=== PATIENT | male | born 1980 | race Caucasian/White ===

== ENCOUNTER 2017-10-01 09:02 | Emergency (ER) | payer BC ==
[2017-10-01 09:15] VITALS: BP 140/85
--- NOTE | 2017-10-01 10:16 | UC ---
Skin Complaint HPI - HPI Summary HPI Summary: 37 y/o presents to the urgent care c/o pt arrives with c/o rash over entire body several spots noted states they feel like bruises and the do not itch - History of Current Complaint Chief Complaint: UCRash Time Seen by Provider: 10/01/17 10:13 Stated Complaint: RASH Hx Obtained From: Patient Onset/Duration: Gradual Onset Pain Intensity: 0 - Allergy/Home Medications Allergies/Adverse Reactions: Allergies Allergy/AdvReac Type Severity Reaction Status Date / Time No Known Allergies Allergy Verified 10/01/17 09:16 Home Medications: Home Medications raNITIdine HCl [Heartburn Relief] 150 mg PO 10/01/17 [History] PMH/Surg Hx/FS Hx/Imm Hx - Surgical History Surgical History: None - Social History Alcohol Use: None Substance Use Type: None Smoking Status (MU): Former Smoker Physical Exam - Summary Physical Exam Summary: Vital Signs Reviewed: Yes General: well developed, well nourished female sitting in the examining table w/ o any apparent distress. Eyes: Positive: Conjunctiva Clear - PERRLA, EOMI ENT: Positive: Normal ENT inspection, Hearing grossly normal, Pharynx normal, TMs normal Neck: Positive: Supple, Nontender, No Lymphadenopathy Respiratory: Positive: Chest nontender, Lungs clear, Normal breath sounds Cardiovascular: Positive: RRR, No Murmur, Pulses Normal Abdomen Description: Positive: Nontender, No Organomegaly, Soft. Negative: CVA Tenderness (R), CVA Tenderness (L) Bowel Sounds: Positive: Present Musculoskeletal: Positive: Strength Intact, ROM Intact, No Edema Neurological Exam: Normal Psychological Exam: Normal Skin: Positive: rashes -positive medial aspect or the Rt upper arm, left forearm , left upper tight and LLQ abdomen w/ erythematous patches w/ a central clearance and classical bull's eye lesions, about 5cmx 6.0cm in size, another in the chest and another in the back w/o central clearance. non tender to palpation. no swelling or drainage observed. The one in the thigh is where tick bite happened 2 weeks ago, tick still on. It was removed. area cleaned w/ iodine swab and bacitracin ointment applied, Triage Information Reviewed: Yes Vital Signs: Initial Vital Signs Temp 98 F 10/01/17 09:07 Pulse 105 10/01/17 09:07 Resp 16 10/01/17 09:07 BP 140/85 10/01/17 09:07 Pulse Ox 99 10/01/17 09:07 Course/Dx - Course Course Of Treatment: Pt most likely with Lyme Disease on examination. Lyme serology ordered. Pt Rx Doxycycline PO . Advised that there is to possibility the serology returns negative the first 2 weeks of exposure. However strongly advised to f/u with Dr Hodgson or PCP for further management. Pt understood and agreed with plan of care. - Differential Diagnoses - Skin Complaint Differential Diagnoses: Abscess, Cellulitis, Contact Dermatitis, Systemic Illness, Tick Born Illness - Diagnoses Provider Diagnoses: 1- Erythema Migrans rash, Lyme disease. 2- Elevated BP w/o Hx of HTN Discharge - Discharge Plan Condition: Stable Disposition: HOME Prescriptions: Bacitracin OINTMENT* 1 applic TOPICAL BID #1 tube DOXYcycline CAP(*) [DOXYcycline 100MG CAP(*)] 100 mg PO BID #42 cap Patient Education Materials: Lyme Disease (ED), Low-Sodium Diet (ED) Referrals: [facility] [Outside] - 1 Week Gokul GOODRICH,Thanh Antonio [Medical Doctor] - 1 Week Additional Instructions: 1- Please take full course of antibiotic to avoid resistance. Apply Bacitracin ointment on tick bite sicne it is co-infected as directed. 2- Lyme Serology and blood work still pending. You will be notified of results 3- F/u with DR Hodgson or a PCP in 1 week for further management in Lyme Disease 4- If you develop severe fever, palpitation or weakness or facial droop please go immediately to the Er for further management. 5-Your BP is elevated today. please decrease salt in your diet, monitor BP and if it continues to be elevated please f/u with your PCP for further management - Billing Disposition and Condition Condition: STABLE Disposition: Home
== END 2017-10-01 10:45 | disposition home or self-care (01) ==
LOC: UCEAST 09:02
DX: A69.20 Lyme disease, unspecified (principal); R03.0 Elevated blood-pressure reading, without diagnosis of hypertension; Z87.891 Personal history of nicotine dependence
CPT/HCPCS: 86617; 86618; 99211; G0463

== ENCOUNTER 2018-01-16 21:18 | Emergency (ER) | payer BC ==
--- NOTE | 2018-01-17 00:30 | ED ---
Skin Complaint - HPI Summary HPI Summary: Patient is a 37 y/o M w/ c/o right lateral calf bleeding after a shampoo bottle fell and hit his leg tonight. He has Hx of varicose veins. Dressing had been applied by patient. A pinpoint wound is noted, bleeding has subsided at this point. On triage, pain is denied, nothing is noted to aggravate/alleviate Sx. Home medications and allergies reviewed. - History of Current Complaint Chief Complaint: EDGeneral Time Seen by Provider: 01/17/18 00:14 Stated Complaint: RT LEG INJURY Hx Obtained From: Patient Onset/Duration: Started Hours Ago - onset tonight, Still Present Skin Exposure Onset/Duration: Hours Ago Timing: Constant Current Severity: None - pain is denied Pain Intensity: 0 Pain Scale Used: 0-10 Numeric - 0/10 Skin Location: Leg - right calf Aggravating Symptom(s): Nothing Alleviating Symptom(s): Nothing - Allergy/Home Medications Allergies/Adverse Reactions: Allergies Allergy/AdvReac Type Severity Reaction Status Date / Time No Known Allergies Allergy Verified 01/16/18 21:28 PMH/Surg Hx/FS Hx/Imm Hx Cardiovascular History: Reports: Other Cardiovascular Problems/Disorders - varicose veins Sensory History: Denies: Hx Legally Blind Opthamlomology History: Denies: Hx Legally Blind Infectious Disease History: No Infectious Disease History: Denies: Traveled Outside the [place] in Last 30 Days - Family History Known Family History: Negative: Blood Disorder - Social History Alcohol Use: None Substance Use Type: Reports: None Smoking Status (MU): Former Smoker Review of Systems Negative: Fever - on vitals, temp is 97.4 F Cardiovascular: Negative Negative: Shortness Of Breath Gastrointestinal: Negative Positive: Other - pinpoint skin break at right lateral calf All Other Systems Reviewed And Are Negative: Yes Physical Exam - Summary Physical Exam Summary: VITAL SIGNS: Reviewed. GENERAL: Patient is a well-developed and nourished male who is lying comfortable in the stretcher. Patient is not in any acute respiratory distress. HEAD AND FACE: No signs of trauma. No ecchymosis, hematomas or skull depressions. No sinus tenderness. EYES: PERRLA, EOMI x 2, No injected conjunctiva, no nystagmus. EARS: Hearing grossly intact. Ear canals and tympanic membranes are within normal limits. MOUTH: Oropharynx within normal limits. NECK: Supple, trachea is midline, no adenopathy, no JVD, no carotid bruit, no c- spine tenderness, neck with full ROM. CHEST: Symmetric, no tenderness at palpation LUNGS: Clear to auscultation bilaterally. No wheezing or crackles. CVS: Regular rate and rhythm, S1 and S2 present, no murmurs or gallops appreciated. ABDOMEN: Soft, non-tender. No signs of distention. No rebound no guarding, and no masses palpated. Bowel sounds are normal. EXTREMITIES: FROM in all major joints, no edema, no cyanosis or clubbing. NEURO: Alert and oriented x 3. No acute neurological deficits. Speech is normal and follows commands. SKIN: Dry and warm; pinpoint skin break at right lateral calf Triage Information Reviewed: Yes Vital Signs On Initial Exam: Initial Vitals Temp Pulse Resp BP Pulse Ox 97.4 F 108 16 139/98 97 01/16/18 21:22 01/16/18 21:22 01/16/18 21:22 01/16/18 21:22 01/16/18 21:22 Vital Signs Reviewed: Yes Diagnostics - Vital Signs Vital Signs Temp Pulse Resp BP Pulse Ox 01/16/18 23:28 97.1 F 68 16 119/79 01/16/18 21:22 97.4 F 108 16 139/98 97 - Laboratory Lab Statement: Any lab studies that have been ordered have been reviewed, and results considered in the medical decision making process. Course/Dx - Course Assessment/Plan: Patient is a 37 y/o M w/ c/o right lateral calf bleeding after a shampoo bottle fell and hit his leg tonight. He has Hx of varicose veins. Dressing had been applied by patient. A pinpoint wound is noted, bleeding has subsided at this point. On triage, pain is denied, nothing is noted to aggravate /alleviate Sx. Home medications and allergies reviewed. Physical exam showed a pinpoint skin break at the right lateral calf. Silver nitrate was applied to the wound. Patient was discharged to home and advised to follow up with PCP in 1 -2 days. Patient understands and is agreeable with this follow up care plan. Dx of varicose vein bleed. - Diagnoses Provider Diagnoses: Bleeding from varicose vein Discharge - Sign-Out/Discharge Documenting (check all that apply): Patient Departure - discharge - Discharge Plan Condition: Stable Disposition: HOME Patient Education Materials: Venous Insufficiency (DC) Referrals: [facility] [Outside] - 2 Days Additional Instructions: RETURN TO THE EMERGENCY DEPARTMENT FOR CHANGING OR WORSENING SYMPTOMS. FOLLOW UP WITH PRIMARY CARE PHYSICIAN IN 1-2 DAYS. - Billing Disposition and Condition Condition: STABLE Disposition: Home - Attestation Statements Document Initiated by Scribe: Yes Documenting Scribe: Daniel Chadwick Provider For Whom Scribe is Documenting (Include Credential): Vern Paz MD Scribe Attestation: Daniel Nugent , scribed for Vern Paz MD on 01/17/18 at 0545. Scribe Documentation Reviewed: Yes Provider Attestation: The documentation as recorded by the Daniel cornell accurately reflects the service I personally performed and the decisions made by Allen chavez MD
[2018-01-17 00:35] VITALS: BP 115/69
== END 2018-01-17 00:34 | disposition home or self-care (01) ==
LOC: ED 21:18
DX: I83.891 Varicose veins of right lower extremity with other complications (principal); Z87.891 Personal history of nicotine dependence
CPT/HCPCS: 99281

== ENCOUNTER 2018-02-23 05:50 | Emergency (ER) | payer BC ==
[2018-02-23 05:55] VITALS: BP 151/94
--- NOTE | 2018-02-23 07:21 | ED ---
Upper Extremity Pain - HPI Summary HPI Summary: Patient is a 37-year-old male presenting to the ED with left thumb injury. He states he smashed his thumb while working on a machine this morning. Endorses pain MCP and IP. Denies any other pain or injuries. Denies any numbness or tingling. Denies any color or temperature changes. Small abrasion noted to the dorsal aspect of the thumb. Flexion and extension intact. Thumb opposition intact. - History of Current Complaint Chief Complaint: EDExtremityUpper Stated Complaint: THUMB INJURY Time Seen by Provider: 02/23/18 05:57 Hx Obtained From: Patient Mechanism Of Injury: Direct Blow Onset/Duration: Started Hours Ago Timing: Constant Severity Initially: Moderate Severity Currently: Moderate Pain Location: Hand Character: Aching Aggravating Factor(s): Movement, Lifting, Flexion, Extension Alleviating Factor(s): Rest, Ice Associated Signs & Symptoms: Positive: Swelling. Negative: Redness, Bruising, Weakness, Numbness/Tingling Related History: Occupational Injury, Dominant Hand Right - Risk Factors Non-Orthopedic Risk Factor: Negative DVT Risk Factors: Negative Septic Arthritis Risk Factor: Negative Compartment Syndrome Risk Factors: Pain - Allergies/Home Medications Allergies/Adverse Reactions: Allergies Allergy/AdvReac Type Severity Reaction Status Date / Time No Known Allergies Allergy Verified 02/23/18 06:02 PMH/Surg Hx/FS Hx/Imm Hx Previously Healthy: Yes Cardiovascular History: Reports: Other Cardiovascular Problems/Disorders - varicose veins Sensory History: Denies: Hx Legally Blind Opthamlomology History: Denies: Hx Legally Blind - Immunization History Date of Tetanus Vaccine: unk Date of Influenza Vaccine: none Hx Pertussis Vaccination: No Immunizations Up to Date: Yes Infectious Disease History: No Infectious Disease History: Denies: Traveled Outside the [place] in Last 30 Days - Family History Known Family History: Positive: None - Pt denies FMHX Negative: Blood Disorder - Social History Occupation: Unemployed Lives: With Family Alcohol Use: Occasionally Hx Substance Use: Yes Substance Use Type: Reports: Marijuana Substance Use Comment - Amount & Last Used: 12 hours ago, 1` hit Smoking Status (MU): Former Smoker Review of Systems Negative: Fever, Chills, Fatigue, Skin Diaphoresis Negative: Palpitations, Chest Pain Negative: Shortness Of Breath, Cough Genitourinary: Negative Positive: no symptoms reported Positive: Arthralgia, Myalgia Skin: Negative Neurological: Negative All Other Systems Reviewed And Are Negative: Yes Physical Exam Triage Information Reviewed: Yes Vital Signs On Initial Exam: Initial Vitals Temp Pulse Resp BP Pulse Ox 97.3 F 104 20 151/94 99 02/23/18 05:51 02/23/18 05:51 02/23/18 05:51 02/23/18 05:51 02/23/18 05:51 Vital Signs Reviewed: Yes Appearance: Positive: Well-Appearing, Well-Nourished Skin: Positive: Warm, Skin Color Reflects Adequate Perfusion Head/Face: Positive: Normal Head/Face Inspection Eyes: Positive: EOMI, FAWN, Conjunctiva Clear Neck: Positive: Supple, No Lymphadenopathy Respiratory/Lung Sounds: Positive: Clear to Auscultation, Breath Sounds Present Cardiovascular: Positive: RRR, Pulses are Symmetrical in both Upper and Lower Extremities Musculoskeletal: Positive: Pain @ - left thumb pain Neurological: Positive: Speech Normal Psychiatric: Positive: Normal, Affect/Mood Appropriate AVPU Assessment: Alert Diagnostics - Vital Signs Vital Signs Temp Pulse Resp BP Pulse Ox 02/23/18 06:42 97.3 F 104 20 151/94 99 02/23/18 05:51 97.3 F 104 20 151/94 99 - Laboratory Lab Statement: Any lab studies that have been ordered have been reviewed, and results considered in the medical decision making process. Course/Dx - Course Course Of Treatment: Patient is a 37-year-old male presenting to the ED with left thumb injury. He states he smashed his thumb while working on a machine this morning. Endorses pain MCP and IP. Denies any other pain or injuries. Denies any numbness or tingling. Denies any color or temperature changes. Small abrasion noted to the dorsal aspect of the thumb. Flexion and extension intact. Thumb opposition intact. X-ray obtained which is normal for any acute fractures. This was read by MATTHEW Mack. - Diagnoses Differential Diagnosis/HQI/PQRI: Positive: Strain, Sprain Provider Diagnoses: Thumb pain Discharge - Sign-Out/Discharge Documenting (check all that apply): Patient Departure - Discharge Plan Condition: Stable Disposition: HOME Referrals: No Primary Care Phys,NOPCP [Primary Care Provider] - Additional Instructions: Ice to the area Ibuprofen 600mg three times daily for inflammation x 2-3 days Keep sigrid wrap on x several hours - Billing Disposition and Condition Condition: STABLE Disposition: Home
== END 2018-02-23 06:42 | disposition home or self-care (01) ==
LOC: ED 05:50
DX: M79.645 Pain in left finger(s) (principal); Z87.891 Personal history of nicotine dependence; W31.9XXA Contact with unspecified machinery, initial encounter; Y93.89 Activity, other specified; Y92.9 Unspecified place or not applicable
CPT/HCPCS: 99282